=== PATIENT | male | born 1980 ===

== ENCOUNTER 2016-10-22 22:40 | Emergency (ER) | payer OTHER ==
[2016-10-22] MEDS ORDERED: LORazepam 2 MG/ML INJ ONE (23:03)
[2016-10-22] MEDS ORDERED: ONDANSETRON HCL 4 MG/2 ML VIAL ONE (23:05)
--- NOTE | 2016-10-23 03:10 | ER PHYSICIAN DOCUMENTATION ---
Physician Documentation [facility] Name:Ariella West Age:36 yrs Sex:Male :1980 Arrival Date:10/22/2016 Time:22:40 Bed3 Private MD: Nando Grover Disposition: 10/23/16 00:43 Discharged to Home/Self Care. Impression: Marijuana Abuse, Vomiting - Dehydration. - Condition is Good. - Discharge Instructions: MARIJUANA ABUSE, VOMITING (8y-Adult). - Medical Reconciliation form form. - Follow up: Private Physician; When: As needed; Reason: Continuance of care. - Problem is new. - Symptoms have improved. HPI: 10/22 23:44 This 36 yrs old Unknown Male presents to ER via EMS with complaints of Drug Abuse. jalen 23:44 The patient presents to the emergency department with a known poisoning, THC. Context: Psychiatric history: none. Associated signs and symptoms: Pertinent positives: anxiety, palpitations, vomiting, "feels like I'm dying". The EMS care prior to arrival includes: IV fluids. The patient has not experienced similar symptoms in the past. Pt ate 2 gummies and smoked a joint. Pt has not used TCH in 8 years. Pt lives in [place], [place]. Historical: - Allergies: PENICILLINS; - Home Meds: 1. None - PMHx: None; - PSHx: None; - Tetanus: < 10 years. - Ebola Screening: : Patient negative for fever greater than or equal to 101.5 degrees Fahrenheit, and additional compatible Ebola Virus Disease symptoms. - Immunization history: Flu Vaccine < 1 year. - Social history: Smoking status: Patient states was never smoker of tobacco. ROS: 23:30 Constitutional: Negative for fever. jm 23:30 Cardiovascular: Positive for palpitations. 23:30 Respiratory: Positive for shortness of breath. 23:30 Abdomen/GI: Positive for nausea, vomiting. 23:30 Neuro: Positive for altered mental status, dizziness. 23:30 Psych: Positive for anxiety. Exam: 23:30 Constitutional: The patient appears alert, awake, anxious. jm 23:30 ENT: Mouth: Oral mucosa: dry, cotton mouth. 23:30 Cardiovascular: Rate: tachycardic, Rhythm: regular. 23:30 Respiratory: Respirations: normal, Breath sounds: are normal. 23:30 Neuro: Orientation: is normal, Memory: is normal. 23:30 Psych: Behavior/mood is pleasant, cooperative, anxious, Affect is calm. Vital Signs: 22:45 BP 174 / 104; Pulse 121; Resp 24; Temp 98.3(O); Pulse Ox 96% on R/A; Weight 72.57 kg; rh Height 5 ft. 4 in. (162.56 cm); Pain 0/10; 23:39 BP 135 / 95; Pulse 110; Resp 15; Pulse Ox 98% on 2 lpm NC; Pain 0/10; rh 10/23 03:08 BP 143 / 93; Pulse 98; Resp 15; Pulse Ox 92% on R/A; Pain 0/10; rh 10/22 22:45 Body Mass Index 27.46 (72.57 kg, 162.56 cm) rh MDM: 10/22 22:52 Patient medically screened. 23:30 Differential diagnosis: Ingestion/exposure to THC. Data reviewed: vital signs, nurses notes, EMS record, and as a result, I will continue to observe the patient. Counseling: I had a detailed discussion with the patient and/or guardian regarding: the historical points, exam findings, and any diagnostic results supporting the discharge/admit diagnosis. Medication response: The patient's symptoms have improved, ativan and zofran. ED course: Pt observed for a few hours and felt better after meds and fluids. . 10/22 23:10 Order name: Iv Saline Lock; Complete Time: 23:11 10/22 23:10 Order name: Oxygen; Complete Time: 23:11 10/22 23:22 Order name: Pulse Ox Continuous; Complete Time: 23:38 Dispensed Medications: 22:45 Drug: NS 0.9% 1000 ml; Route: IV; Rate: bolus; Site: right antecubital; 10/23 00:00 Follow up: IV Status: Completed infusion; IV Intake: 1000ml rh 10/22 22:55 Drug: Ativan 2 mg; Route: IVP; Site: right antecubital; 23:38 Follow up: Response: Anxiety decreased rh 22:55 Drug: Zofran 8 mg; Route: IVP; Infused Over: 2 mins; Site: right antecubital; 23:39 Follow up: Response: Nausea is decreased 10/23 00:00 Drug: NS 0.9% 1000 ml; Route: IV; Rate: bolus; Site: right antecubital; rh 01:00 Follow up: IV Status: Completed infusion; IV Intake: 1000ml rh Signatures: Nando Parker MD MD jm Hofsess, Rachel
--- NOTE | 2016-10-23 03:10 | ER NURSING DOCUMENTATION ---
Nurse's Notes [facility] Name:Ariella West Age:36 yrs Sex:Male :1980 Arrival Date:10/22/2016 Time:22:40 Bed3 Private MD: Diagnosis:Marijuana Abuse;Vomiting - Dehydration Presentation: 10/22 22:44 Acuity: SKIP 3 rh 22:47 Presenting complaint: EMS states: Pt here from [place], he ingested 3 marajuana rh edible gummy bears, each 9.5 mg. He also smoked a 20% joint. Pt c/o anxiety, lightheaded feeling and tingling. Pt tachycardic. Transition of care: Other [place]. 22:47 Method Of Arrival: EMS: 410 rh Triage Assessment: 22:49 General: Appears uncomfortable, Behavior is anxious, restless. Pain: Denies pain. EENT: rh Oral mucosa is dry. Neuro: Level of Consciousness is awake, alert, obeys commands, Oriented to person, place, time, event. Cardiovascular: Capillary refill < 3 seconds Chest pain is denied. Respiratory: Airway is patent Respiratory effort is even, unlabored, Respiratory pattern is regular, symmetrical. GI: Abdomen is non- distended Denies diarrhea, nausea, vomiting. : No deficits noted. Derm: Skin is intact, is healthy with good turgor, Skin is pink, warm & dry. Historical: - Allergies: PENICILLINS; - Home Meds: 1. None - PMHx: None; - PSHx: None; - Tetanus: < 10 years. - Ebola Screening: : Patient negative for fever greater than or equal to 101.5 degrees Fahrenheit, and additional compatible Ebola Virus Disease symptoms. - Immunization history: Flu Vaccine < 1 year. - Social history: Smoking status: Patient states was never smoker of tobacco. Screenin:11 Infectious Disease Risk None. Abuse screen: Denies threats or abuse. Denies injuries rh from another. Nutritional screening: No deficits noted. Assessment: 23:00 GI: Pt is actively vomiting. rh 23:11 See Triage Assessment done by same RN. rh Vital Signs: 22:45 BP 174 / 104; Pulse 121; Resp 24; Temp 98.3(O); Pulse Ox 96% on R/A; Weight 72.57 kg; rh Height 5 ft. 4 in. (162.56 cm); Pain 0/10; 23:39 BP 135 / 95; Pulse 110; Resp 15; Pulse Ox 98% on 2 lpm NC; Pain 0/10; 10/23 03:08 BP 143 / 93; Pulse 98; Resp 15; Pulse Ox 92% on R/A; Pain 0/10; 10/22 22:45 Body Mass Index 27.46 (72.57 kg, 162.56 cm) rh ED Course: 10/22 22:42 Patient arrived in ED. ma 22:44 Yesenia Washington is Primary Nurse. 22:44 Triage completed. 22:45 Notified ED Physician of patient's arrival and chief complaint. Dr. Parker notified. 22:52 Nando Parker MD is Attending Physician. 22:55 Oxygen Oxygen administration via nasal cannula @ 2L/min. rh 23:11 Valuables Remains with patient Patient has correct armband on for positive rh identification. Bed in low position. Call light in reach. Side rails up X 1. 23:12 Maintain field IV. Dressing intact. Site clean & dry. Gauge & site: 18G R AC. 10/23 01:25 Assisted to bathroom. 03:09 Primary Nurse role handed off by Yesenia Washington Administered Medications: 10/22 22:45 Drug: NS 0.9% 1000 ml; Route: IV; Rate: bolus; Site: right antecubital; 10/23 00:00 Follow up: IV Status: Completed infusion; IV Intake: 1000ml 10/22 22:55 Drug: Ativan 2 mg; Route: IVP; Site: right antecubital; rh 23:38 Follow up: Response: Anxiety decreased 22:55 Drug: Zofran 8 mg; Route: IVP; Infused Over: 2 mins; Site: right antecubital; rh 23:39 Follow up: Response: Nausea is decreased 10/23 00:00 Drug: NS 0.9% 1000 ml; Route: IV; Rate: bolus; Site: right antecubital; rh 01:00 Follow up: IV Status: Completed infusion; IV Intake: 1000ml rh Intake: 00:00 IV: 1000ml; Total: 1000ml. 01:00 IV: 1000ml; Total: 2000ml. Outcome: 00:43 Discharge ordered by . jalen 03:08 Discharged to home ambulatory, with significant other. 03:08 Condition: improved 03:08 Discharge Assessment: Patient awake, alert and oriented x 3. No cognitive and/or functional deficits noted. Patient verbalized understanding of disposition instructions. 03:08 Discharge instructions given to patient, significant other, Instructed on discharge instructions, follow up and referral plans. Demonstrated understanding of instructions. 03:08 IV D/Tamir 03:08 Patient left the ED. 03:09 Patient left the ED. Signatures: Nando Parker MD MD jm Hofsess, Rachel rh Addison, Melissa ma1
== END 2016-10-23 03:10 | disposition home or self-care (01) ==
LOC: EEVIPCON 22:40 → ER 22:40
DX: F12.180 Cannabis abuse with cannabis-induced anxiety disorder (principal); E86.0 Dehydration; R00.2 Palpitations; R11.2 Nausea with vomiting, unspecified; R06.02 Shortness of breath; R42 Dizziness and giddiness; Z99.89 Dependence on other enabling machines and devices; Z74.3 Need for continuous supervision
CPT/HCPCS: 96361; 96374; 96375; 99284; A0425; A0427; J2060; J2405